=== PATIENT | male | born 1950 | race Caucasian/White ===

== ENCOUNTER 2018-02-01 11:50 | Observation (INO) | payer MEDICARE, OTHER ==
[2018-02-01] MEDS ORDERED: ASPIRIN 81 MG TABLET, CHEWABLE PO ONE (12:43)
[2018-02-01] MEDS ORDERED: NITROGLYCERIN 0.4 MG/TAB 25 TAB/BOTTLE SL PRN (12:43)
--- NOTE | 2018-02-01 12:45 | ER Document Report ---
ED Medical Screen (RME) - General Chief Complaint: Chest Pain Stated Complaint: CHEST PAIN Time Seen by Provider: 02/01/18 12:39 - HPI Notes: 02/01/18 12:45 Patient is a 67-year-old male with history of SD that presents to the emergency department for chief complaint of chest pain. He has a left-sided chest pain that started at 4 AM this morning. The pain has been constant. He took 1 baby aspirin at home for his pain. ROS: GENERAL: Denies fever of chills CV: chest pain PHYSICAL EXAMINATION: GENERAL: Well-appearing, well-nourished and in no acute distress. HEAD: Atraumatic, normocephalic. EYES: Pupils equal round extraocular movements intact, conjunctiva are normal. ENT: Nares patent NECK: Normal range of motion LUNGS: No respiratory distress Musculoskeletal: Normal range of motion NEUROLOGICAL: Normal speech, normal gait. PSYCH: Normal mood, normal affect. MDM: Patient seen and examined for rapid initial assessment. Vital signs reviewed. A comprehensive ED assessment and evaluation of the patient, analysis of test results and completion of the medical decision making process will be conducted by additional ED providers. - Related Data Allergies/Adverse Reactions: No Known Allergies Allergy (Unverified 02/01/18 11:53) Past Medical History - Social History Chew tobacco use (# tins/day): No Frequency of alcohol use: None Drug Abuse: None Renal/ Medical History: Denies: Hx Peritoneal Dialysis Physical Exam - Vital signs Vitals: Temp Pulse Resp BP Pulse Ox 98.1 F 56 L 16 141/80 H 100 02/01/18 12:06 02/01/18 12:06 02/01/18 12:06 02/01/18 12:06 02/01/18 12:06 Course - Vital Signs Vital signs: Temp Pulse Resp BP Pulse Ox 98.1 F 56 L 16 141/80 H 100 02/01/18 12:06 02/01/18 12:06 02/01/18 12:06 02/01/18 12:06 02/01/18 12:06
--- NOTE | 2018-02-01 12:56 | EKG REPORT ---
SEVERITY:- ABNORMAL ECG - SINUS RHYTHM INFERIOR INFARCT, OLD NONSPECIFIC ST-T CHANGES ANTERIOR LEADS : Confirmed by: Michael Fernandez MD 01-Feb-2018 12:55:18
--- NOTE | 2018-02-01 13:24 | RADIOLOGY REPORT (SQ) ---
EXAM DESCRIPTION: CHEST SINGLE VIEW COMPLETED DATE/TIME: 02/01/2018 1:11 pm REASON FOR STUDY: chest pain COMPARISON: None. EXAM PARAMETERS: NUMBER OF VIEWS: One view. TECHNIQUE: Single frontal radiographic view of the chest acquired. RADIATION DOSE: NA LIMITATIONS: None. FINDINGS: LUNGS AND PLEURA: No opacities, masses or pneumothorax. No pleural effusion. MEDIASTINUM AND HILAR STRUCTURES: No masses. Contour normal. HEART AND VASCULAR STRUCTURES: Heart normal in size. Evidence of prior CABG. Normal vasculature. BONES: Median sternotomy changes. HARDWARE: None in the chest. OTHER: No other significant finding. IMPRESSION: No evidence of acute cardiopulmonary process. TECHNICAL DOCUMENTATION: JOB ID: [id number] [employer]- All Rights Reserved Reading location - IP/workstation name: [email or web address]
--- NOTE | 2018-02-01 13:32 | ER Document Report ---
ED General - General Chief Complaint: Chest Pain Stated Complaint: CHEST PAIN Time Seen by Provider: 02/01/18 12:39 Notes: Patient is a 67-year-old male that presents to the emergency department for chief complaint of chest pain. The patient reports that the pain started this morning and lasted about 6 hours. The currently rate the pain as 0 out of 10, and described as heaviness earlier today, but now resolved. They have had associated radiation to the left side of the chest was mainly substernal. Denies any shortness of breath, nausea, vomiting or diaphoresis. Their risk factors for heart disease include hypertension, CAD, status post CABG. Past Medical History: CAD, hypertension, hyperlipidemia Past Surgical History: CABG x3, in 2016 Social History: Denies tobacco, alcohol or drug use Family History: Reviewed and noncontributory for presenting illness Allergies: Reviewed, see documented allergy list. REVIEW OF SYSTEMS: Other than noted above, the 12 point review of systems was reviewed with the patient and were negative, all pertinent findings are included in the HPI. PHYSICAL EXAMINATION: Vital signs reviewed, nursing noted reviewed. GENERAL: Well-appearing, well-nourished and in no acute distress. HEAD: Atraumatic, normocephalic. EYES: Eyes appear normal, extraocular movements intact, sclera anicteric, co njunctiva are normal. ENT: nares patent, oropharynx clear without exudates. Moist mucous membranes. NECK: Normal range of motion, supple without lymphadenopathy LUNGS: Breath sounds clear to auscultation bilaterally and equal. No wheezes rales or rhonchi. HEART: Heart rate bradycardic, regular rhythm. ABDOMEN: Soft, nontender, normoactive bowel sounds. No rebound, guarding, or rigidity. No masses appreciated. EXTREMITIES: Nontender, good range of motion, no pitting or edema. NEUROLOGICAL: No focal neurological deficits. Moves all extremities spontaneously Motor and sensory grossly intact on exam. PSYCH: Normal mood, normal affect. SKIN: Warm, Dry, normal turgor, no rashes or lesions noted on exposed skin - Related Data Allergies/Adverse Reactions: No Known Allergies Allergy (Verified 02/01/18 12:47) Past Medical History - Social History Smoking Status: Never Smoker Chew tobacco use (# tins/day): No Frequency of alcohol use: None Drug Abuse: None Family History: Reviewed & Not Pertinent Patient has suicidal ideation: No Patient has homicidal ideation: No - Past Medical History Cardiac Medical History: Reports: Hx Heart Attack, Hx Hypercholesterolemia Renal/ Medical History: Reports: Hx Kidney Stones. Denies: Hx Peritoneal Dialysis Past Surgical History: Reports: Hx Cardiac Catheterization, Hx Cardiac Surgery, Hx Kidney (Renal Surgery) Physical Exam - Vital signs Vitals: Temp Pulse Resp BP Pulse Ox 98.1 F 56 L 16 141/80 H 100 02/01/18 12:06 02/01/18 12:06 02/01/18 12:06 02/01/18 12:06 02/01/18 12:06 Course - Re-evaluation Re-evalutation: Patient seen and examined vital signs reviewed. Laboratory data and imaging were ordered as appropriate for the patient's presenting symptoms and complaint, with consideration of any critical or life threatening conditions that may be associated with their obtained history and exam as noted above. Patient was treated with aspirin, and nitro if his pain returned, but he did not require any doses during his ED course Results were reviewed when available and demonstrated negative chest x-ray, initial troponin negative, likely lites and CBC unremarkable, chest x-ray negative. The patient was re-evaluated and was stable Evaluation was most consistent with chest pain, nonspecific, patient does have significant risk factors for heart disease including CABG only 2 years ago, recommend observation in the hospital with serial troponin testing which the patient was agreeable to. Results were discussed with the patient at this point after careful consideration I feel that that patient should be admitted to the hospital. This was discussed with the patient that it is in the best interest for their care to be admitted for further evaluation and management. Patient agreed with this plan of care. A call was placed to the admitted physician, Dr. Berkowitz who graciously accepted the patient onto their service. *Note is created using voice recognition software and may contain spelling, syntax or grammatical errors. Laboratory 02/01/18 02/01/18 02/01/18 13:15 13:15 13:15 WBC 6.1 RBC 4.78 Hgb 14.7 Hct 42.2 MCV 88 MCH 30.8 MCHC 34.9 RDW 13.7 Plt Count 166 Seg Neutrophils % 68.0 Lymphocytes % 21.4 Monocytes % 7.3 Eosinophils % 2.1 Basophils % 1.2 Absolute Neutrophils 4.2 Absolute Lymphocytes 1.3 Absolute Monocytes 0.4 Absolute Eosinophils 0.1 Absolute Basophils 0.1 Sodium 139.4 Potassium 4.6 Chloride 102 Carbon Dioxide 29 Anion Gap 8 BUN 17 Creatinine 0.94 Est GFR ( Amer) > 60 Est GFR (Non-Af Amer) > 60 Glucose 91 Calcium 9.5 Troponin I < 0.012 Chest X-Ray 02/01/18 12:39 IMPRESSION: No evidence of acute cardiopulmonary process. - Vital Signs Vital signs: Temp Pulse Resp BP Pulse Ox 98.1 F 56 L 16 141/80 H 100 02/01/18 12:06 02/01/18 12:06 02/01/18 12:06 02/01/18 12:06 02/01/18 12:06 - Laboratory Result Diagrams: 02/01/18 13:15 02/01/18 13:15 - EKG Interpretation by Me Additional EKG results interpreted by me: EKG demonstrates sinus bradycardia with a ventricular rate of 48 bpm, left axis deviation, normal intervals, there is no evidence of acute ischemia on this EKG, this is compared with prior EKG from an hour prior to this EKG, without significant change, no remote EKG available. Discharge - Discharge Clinical Impression: Chest pain Condition: Stable
[2018-02-01] MEDS ORDERED: REGADENOSON INJ 0.4 MG/5 ML DISP.SYRIN IV ONE (13:36)
[2018-02-01 13:49] LABS: ABSOLUTE BASOPHILS # (AUTO) 0.1 10^3/uL (0.0-0.2); ABSOLUTE EOSINOPHILS # (AUTO) 0.1 10^3/uL (0.0-0.6); ABSOLUTE LYMPHOCYTES (AUTO) 1.3 10^3/uL (0.5-4.7); ABSOLUTE MONOCYTES (AUTO) 0.4 10^3/uL (0.1-1.4); ABSOLUTE NEUT (AUTO) 4.2 10^3/uL (1.7-8.2); BASOPHILS % (AUTO) 1.2 % (0-2); EOSINOPHILS % (AUTO) 2.1 % (0-6); HEMATOCRIT 42.2 % (37.9-51.0); HEMOGLOBIN 14.7 g/dL (13.5-17.0); LYMPHOCYTES % (AUTO) 21.4 % (13-45); MEAN CORPUSCULAR HEMOGLOBIN 30.8 pg (27.0-33.4); MEAN CORPUSCULAR HGB CONC 34.9 g/dL (32.0-36.0); MEAN CORPUSCULAR VOLUME 88 fl (80-97); MONOCYTES % (AUTO) 7.3 % (3-13); PLATELET COUNT 166 10^3/uL (150-450); RED BLOOD COUNT 4.78 10^6/uL (4.35-5.55); RED CELL DISTRIBUTION WIDTH 13.7 % (11.5-14.0); TOTAL CELLS COUNTED % (AUTO) 100 %; WHITE BLOOD COUNT 6.1 10^3/uL (4.0-10.5)
[2018-02-01 14:10] LABS: ANION GAP 8 (5-19); BLOOD UREA NITROGEN 17 mg/dL (7-20); CALCIUM 9.5 mg/dL (8.4-10.2); CARBON DIOXIDE 29 mmol/L (22-30); CHLORIDE 102 mmol/L (98-107); GLUCOSE 91 mg/dL (75-110); POTASSIUM 4.6 mmol/L (3.6-5.0); SODIUM 139.4 mmol/L (137-145)
[2018-02-01] MEDS ORDERED: ONDANSETRON HCL INJ/PF 4 MG/2 ML SDV IV PRN (15:10)
[2018-02-01] MEDS ORDERED: OXYCODONE-ACETAMINOPHEN 5-325 MG TABLET PO PRN (15:10)
--- NOTE | 2018-02-01 15:25 | PDOC H&P ---
History of Present Illness Admission Date/PCP: ANIBAL BEGR MD History of Present Illness: ERIC HATHAWAY is a very pleasant 67 year old male patient who has been in usual baseline state of health up until this morning when he wakes up and walk around and started to feel heaviness at his precordium. The chest pain is not associated with deep breathing. Nothing makes it better or worse. Of note patient had had triple bypass at [facility] 2 years ago. Patient does not have significant medical history except coronary artery disease and benign essential tremor. Patient denied any fever or chills, cough, palpitation, diaphoresis, nausea, vomiting, abdominal pain, diarrhea, urinary complaints, dizziness headache or blurry vision. His EKG shows sinus bradycardia which is due to the propranolol he has been taking for benign essential tremor. His lab works are unremarkable. Past Medical History Cardiac Medical History: Reports: Myocardial Infarction, Hyperlipidema Past Surgical History Past Surgical History: Reports: Cardiac Catheterization Social History Smoking Status: Never Smoker Frequency of Alcohol Use: None Hx Recreational Drug Use: No Hx Prescription Drug Abuse: No - Advance Directive Resuscitation Status: Full Code Family History Family History: CAD Parental Family History Reviewed: Yes Children Family History Reviewed: Yes Sibling(s) Family History Reviewed.: Yes Medication/Allergy Allergies/Adverse Reactions: No Known Allergies Allergy (Verified 02/01/18 12:47) Review of Systems Constitutional: ABSENT: chills, fever(s), headache(s), weight gain, weight loss Eyes: ABSENT: visual disturbances Ears: ABSENT: hearing changes Cardiovascular: PRESENT: chest pain. ABSENT: dyspnea on exertion, edema, orthropnea, palpitations Respiratory: ABSENT: cough, hemoptysis Gastrointestinal: ABSENT: abdominal pain, constipation, diarrhea, hematemesis, hematochezia, nausea, vomiting Genitourinary: ABSENT: dysuria, hematuria Musculoskeletal: ABSENT: joint swelling Integumentary: ABSENT: rash, wounds Neurological: ABSENT: abnormal gait, abnormal speech, confusion, dizziness, focal weakness, syncope Psychiatric: ABSENT: anxiety, depression, homidical ideation, suicidal ideation Endocrine: ABSENT: cold intolerance, heat intolerance, polydipsia, polyuria Hematologic/Lymphatic: ABSENT: easy bleeding, easy bruising Physical Exam Vital Signs: Temp Pulse Resp BP Pulse Ox 98.1 F 56 L 16 141/80 H 100 02/01/18 12:06 02/01/18 12:06 02/01/18 12:06 02/01/18 12:06 02/01/18 12:06 Intake & Output 01/31/18 02/01/18 02/02/18 06:59 06:59 06:59 Weight 75.5 kg General appearance: PRESENT: no acute distress, well-developed, well-nourished Head exam: PRESENT: atraumatic, normocephalic Eye exam: PRESENT: conjunctiva pink, EOMI, PERRLA. ABSENT: scleral icterus Ear exam: PRESENT: normal external ear exam Mouth exam: PRESENT: moist, tongue midline Neck exam: ABSENT: carotid bruit, JVD, lymphadenopathy, thyromegaly Respiratory exam: PRESENT: clear to auscultation isabella. ABSENT: rales, rhonchi, wheezes Cardiovascular exam: PRESENT: RRR. ABSENT: diastolic murmur, rubs, systolic murmur Pulses: PRESENT: normal dorsalis pedis pul Vascular exam: PRESENT: normal capillary refill GI/Abdominal exam: PRESENT: normal bowel sounds, soft. ABSENT: distended, guarding, mass, organolmegaly, rebound, tenderness Rectal exam: PRESENT: deferred Extremities exam: PRESENT: full ROM. ABSENT: calf tenderness, clubbing, pedal edema Neurological exam: PRESENT: alert, awake, oriented to person, oriented to place, oriented to time, oriented to situation, CN II-XII grossly intact. ABSENT: motor sensory deficit Psychiatric exam: PRESENT: appropriate affect, normal mood. ABSENT: homicidal ideation, suicidal ideation Skin exam: PRESENT: dry, intact, warm. ABSENT: cyanosis, rash Results Laboratory Results: 02/01/18 13:15 02/01/18 13:15 02/01/18 02/01/18 13:15 13:15 WBC 6.1 RBC 4.78 Hgb 14.7 Hct 42.2 MCV 88 MCH 30.8 MCHC 34.9 RDW 13.7 Plt Count 166 Seg Neutrophils % 68.0 Lymphocytes % 21.4 Monocytes % 7.3 Eosinophils % 2.1 Basophils % 1.2 Absolute Neutrophils 4.2 Absolute Lymphocytes 1.3 Absolute Monocytes 0.4 Absolute Eosinophils 0.1 Absolute Basophils 0.1 Sodium 139.4 Potassium 4.6 Chloride 102 Carbon Dioxide 29 Anion Gap 8 BUN 17 Creatinine 0.94 Est GFR ( Amer) > 60 Est GFR (Non-Af Amer) > 60 Glucose 91 Calcium 9.5 02/01/18 13:15 Troponin I < 0.012 Impressions: Chest X-Ray 02/01/18 12:39 IMPRESSION: No evidence of acute cardiopulmonary process. Assessment & Plan - Diagnosis (1) Chest pain Qualifiers: Chest pain type: unspecified Qualified Code(s): R07.9 - Chest pain, unspecified Is this a current diagnosis for this admission?: Yes Plan: This patient has a risk factor for acute coronary syndrome will keep him for observation trend his cardiac enzymes repeat EKG and cardiac stress test in the morning. (2) Hyperlipidemia Is this a current diagnosis for this admission?: Yes Plan: Continue home medication (3) Sinus bradycardia Is this a current diagnosis for this admission?: Yes Plan: Patient is a symptomatic. It is due to the propranolol has been taking. (4) Benign essential tremor Is this a current diagnosis for this admission?: Yes Plan: Continue home medication - Time Critical Time spent with patient: 15-24 minutes
[2018-02-01] MEDS: ENOXAPARIN SODIUM INJ 40 MG/0.4 ML DISP.SYRIN SUBCUT SCH (16:47)
[2018-02-01] MEDS: LANSOPRAZOLE 30 MG TAB.RAP.DR PO SCH (17:46)
[2018-02-01] MEDS ORDERED: DEXTROSE 50%-WATER 25 GM/50 ML DISP.SYRIN IV PRN ×2 (17:49)
[2018-02-01] MEDS ORDERED: DEXTROSE 40% GEL 15 GM TUBE PO PRN ×2 (17:49)
[2018-02-01] MEDS ORDERED: GLUCAGON,HUMAN RECOMB 1 MG INJ SUBCUT PRN (17:49)
[2018-02-02 03:38] LABS: ANION GAP 5 (5-19); BLOOD UREA NITROGEN 20 mg/dL (7-20); CALCIUM 9.1 mg/dL (8.4-10.2); CARBON DIOXIDE 26 mmol/L (22-30); CHLORIDE 109 mmol/L (98-107); GLUCOSE 91 mg/dL (75-110); POTASSIUM 4.5 mmol/L (3.6-5.0); SODIUM 140.3 mmol/L (137-145)
[2018-02-02] MEDS: LANSOPRAZOLE 30 MG TAB.RAP.DR PO SCH ×2 (05:52→16:00)
--- NOTE | 2018-02-02 07:55 | EKG REPORT ---
SEVERITY:- ABNORMAL ECG - SINUS BRADYCARDIA ATRIAL PREMATURE COMPLEX INFERIOR INFARCT, AGE INDETERMINATE NONSPECIFIC ST-T CHANGES ANT LEADS : Confirmed by: Michael Fernandez MD 02-Feb-2018 07:54:46
[2018-02-02] MEDS: ENOXAPARIN SODIUM INJ 40 MG/0.4 ML DISP.SYRIN SUBCUT SCH (09:30)
[2018-02-02] MEDS ORDERED: REGADENOSON INJ 0.4 MG/5 ML DISP.SYRIN IV ONE (13:38)
[2018-02-02] MEDS ORDERED: ASPIRIN 81 MG TABLET, ENT COATED PO SCH (15:00)
--- NOTE | 2018-02-02 16:37 | PDOC DISCHARGE SUMMARY ---
General - Admit/Disc Date/PCP Admission Date/Primary Care Provider: 02/01/18 15:41 ANIBAL BERG MD Discharge Date: 02/02/18 - Discharge Diagnosis (1) Chest pain Is this a current diagnosis for this admission?: Yes (2) Hyperlipidemia Is this a current diagnosis for this admission?: Yes (3) Sinus bradycardia Is this a current diagnosis for this admission?: Yes (4) Benign essential tremor Is this a current diagnosis for this admission?: Yes - Additional Information Resuscitation Status: Full Code History of Present Illness History of Present Illness: ERIC PANDA is a very pleasant 67 year old male patient who has been in usual baseline state of health up until this morning when he wakes up and walk around and started to feel heaviness at his precordium. The chest pain is not associated with deep breathing. Nothing makes it better or worse. Of note patient had had triple bypass at [facility] 2 years ago. Patient does not have significant medical history except coronary artery disease and benign essential tremor. Patient denied any fever or chills, cough, palpitation, diaphoresis, nausea, vomiting, abdominal pain, diarrhea, urinary complaints, dizziness headache or blurry vision. His EKG shows sinus bradycardia which is due to the propranolol he has been taking for benign essential tremor. His lab works are unremarkable. Hospital Course Hospital Course: Mr. Panda is a 67 years old male patient admitted yesterday with chief complaint of chest pain described as heaviness as if something sitting on his chest. He has history of coronary artery disease and status post coronary artery bypass graft 2 years ago at [facility]. He is admitted for observation his EKG and troponin are nonrevealing. This morning he has cardiac stress test and as per Dr. Burton no reversible ischemia. Dr. Burton cleared him for discharge and he will follow him in his office as outpatient. Patient also remained chest pain-free throughout his stay in the hospital. I will continue all his home medications. Physical Exam Vital Signs: Temp Pulse Resp BP Pulse Ox 97.7 F 58 L 16 133/74 H 100 02/02/18 12:38 02/02/18 12:38 02/02/18 12:38 02/02/18 12:38 02/02/18 12:38 Intake & Output 12/19/18 12/20/18 12/21/18 06:59 06:59 06:59 Intake Total 582 Balance 582 Weight 76.2 kg General appearance: PRESENT: no acute distress, well-developed, well-nourished Head exam: PRESENT: atraumatic, normocephalic Eye exam: PRESENT: conjunctiva pink, EOMI, PERRLA. ABSENT: scleral icterus Ear exam: PRESENT: normal external ear exam Mouth exam: PRESENT: moist, tongue midline Neck exam: ABSENT: carotid bruit, JVD, lymphadenopathy, thyromegaly Respiratory exam: PRESENT: clear to auscultation isabella. ABSENT: rales, rhonchi, wheezes Cardiovascular exam: PRESENT: RRR. ABSENT: diastolic murmur, rubs, systolic murmur Pulses: PRESENT: normal dorsalis pedis pul Vascular exam: PRESENT: normal capillary refill GI/Abdominal exam: PRESENT: normal bowel sounds, soft. ABSENT: distended, guarding, mass, organolmegaly, rebound, tenderness Rectal exam: PRESENT: deferred Extremities exam: PRESENT: full ROM. ABSENT: calf tenderness, clubbing, pedal edema Neurological exam: PRESENT: alert, awake, oriented to person, oriented to place, oriented to time, oriented to situation, CN II-XII grossly intact. ABSENT: motor sensory deficit Psychiatric exam: PRESENT: appropriate affect, normal mood. ABSENT: homicidal ideation, suicidal ideation Skin exam: PRESENT: dry, intact, warm. ABSENT: cyanosis, rash Results Laboratory Results: 02/01/18 13:15 02/02/18 03:05 02/02/18 03:05 Sodium 140.3 Potassium 4.5 Chloride 109 H Carbon Dioxide 26 Anion Gap 5 BUN 20 Creatinine 1.05 Est GFR ( Amer) > 60 Est GFR (Non-Af Amer) > 60 Glucose 91 Calcium 9.1 02/01/18 02/01/18 02/01/18 13:15 15:20 21:10 Troponin I < 0.012 < 0.012 < 0.012 02/02/18 03:05 Troponin I < 0.012 Impressions: Chest X-Ray 02/01/18 12:39 IMPRESSION: No evidence of acute cardiopulmonary process. Qualifiers - * PATIENT BEING DISCHARGED WITH ANY OF THE FOLLOWING DIAGNOSIS: No
[2018-02-02 16:55] VITALS: BP 124/91
--- NOTE | 2018-02-03 20:25 | DRAGON STRESS TEST REPORT ---
Intravenous Lexiscan Cardiolite stress test using single photon emmision computerized tomography. Date of procedure: 02/02/2018.Ordering Provider: Dr. Simons. Patient's status: Inpatient. Indication: Chest pain the patient with history of coronary artery disease, history of MN, and history of coronary artery bypass graft surgery. Coronary risk factors: Age, diabetes, family history of coronary artery disease, and dyslipidemia, Resting EKG: Sinus Rhythm. Poor R wave progression leads V1 to V6. Stress EKG: No changes of ischemia. The patient had no chest pain or discomfort, and there were no arrhythmias seen. Reason for termination: Protocol. Conclusions: Normal EKG and hemodynamic response to IV Lexiscan. Nuclear data: At rest the patient was given 12.08 millicuries of technetium 99m sestamibi injected intravenously. As per protocol rest non gated SPECT images were obtained. Subsequently the patient was given intravenous Lexiscan at a dose of 0.4 mg in 5 mL intravenously, followed by flush with normal saline. Subsequently the stress dose of 33.0 millicuries of technetium 99m sestamibi was injected intravenously. As per protocol stress gated images were obtained. Nuclear interpretation: Review of images showed that there is diaphragmatic attenuation of the inferior wall. Hence it makes the study difficult to interpret. There probably is a mild perfusion defect in both both the rest and stress images involving the inferior wall. This area seems to have some mildly decreased coronal motion contraction and thickening by gated study. Hence this is consistent with a prior inferior wall scar, which is mild. The rest of the segments of the myocardium had normal perfusion at rest, and normal perfusion post stress with IV Lexiscan. The rest of the segments of the myocardium had normal motion, contraction, and thickening by gated study. T. I D. ratio was normal at 1.15. There is no transient ischemic calcification of the left ventricle. Computer read rest, and stress left ventricular ejection fraction were 56 %, and 54 %, respectively. Visually both the stress and rest ejection fractions were normal, and greater than 55%. Conclusion: 1. There is no scintigraphic evidence of Lexiscan induced myocardial ischemia. 2. There is probably scintigraphic evidence of mild myocardial infarction/scar involving the inferior wall.. Recommendations: 1. Correlate clinically. 2. Aggressive treatment of coronary artery disease, with beta-blockers, statins, nitrates, and aspirin, if no contraindication. 3.Aggressive risk factor modification, and treating the underlying co- morbidities. MTDD
== END 2018-02-02 18:13 | disposition home or self-care (01) ==
LOC: ER 11:50 → EH 15:41 → 5 16:55
PROVIDERS: ADMIT Internal Medicine; ATTEND Internal Medicine
DX: R07.9 Chest pain, unspecified (principal); E78.5 Hyperlipidemia, unspecified; R00.1 Bradycardia, unspecified; T44.7X5A Adverse effect of beta-adrenoreceptor antagonists, initial encounter; G25.0 Essential tremor; I25.2 Old myocardial infarction; I25.10 Atherosclerotic heart disease of native coronary artery without angina pectoris; Z95.1 Presence of aortocoronary bypass graft; Z82.49 Family history of ischemic heart disease and other diseases of the circulatory system
CPT/HCPCS: 93005; 99285; 36415 ×2; 85025; 80048 ×2; 84484 ×2; 93017; 71045; 78452; 93010; A9500; J2785; J3490 ×2; J2405; Q9969; G0378